=== PATIENT | female | born 1930 ===

== ENCOUNTER 2019-01-31 08:27 | Inpatient (IN) | payer MEDICARE, BC ==
[2019-01-31 09:09] LABS: BLOOD UREA NITROGEN,BUN 23 mg/dL (7.0-18.0); CARBON DIOXIDE,CO2 22.6 mmol/L (21.0-32.0); CHLORIDE,CL 103 mmol/L (98-107); GLUCOSE RANDOM 120 mg/dL (74-106); POTASSIUM,K 3.6 mmol/L (3.5-5.1); SODIUM,NA 137 mmol/L (136-145)
[2019-01-31 11:17] LABS: HEMOGLOBIN A1C 6.2 % (4.5-6.2)
[2019-01-31] MEDS ORDERED: Pantoprazole 80 MG in Sodium Chloride 0.9% 20 ML IV ONE (12:32)
[2019-01-31] MEDS ORDERED: Sodium Chloride 0.9% 2.5 ML Syringe FLUSH PRN (12:32)
[2019-01-31] MEDS ORDERED: Ondansetron 4 MG/2 ML SDV IVPUSH PRN (12:32)
--- NOTE | 2019-01-31 12:59 | PCM.HP.2 ---
H&P History of Present Illness - General Date of Service: 01/31/19 Admit Problem/Dx: Admission Diagnosis/Problem Admission Diagnosis/Problem GI bleed requiring more than 4 units of blood in 24 hours, ICU, or surgery Source of Information: Patient, Family - History of Present Illness Initial Comments - Free Text/Narative: 89 F with PMH of DM diet controlled, HTN who comes in for management of severely low Hb from her PCPs clinic. Patient was being evaluated in the clinic , lab work reveled severely low Hb of 4.2. Patient has been taking NSAIDs frequently due to her b/l Arm pain for last few weeks. Patient is unable to tel if she had black stools or bloody stools. Patient does complain of worsneing fatigue, shortness of breath on exertion. Last colonoscopy was 10 years back which was reportedly normal. 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 Per daughter patient has lost significant weight but that was intentionally to manage her diabetes. Patient is being admitted to the hospital for management of anemia likely secondary to GI bleed. Onset of Symptoms: Reports: Gradual Duration of Symptoms: Reports: Week(s): - Related Data Allergies/Adverse Reactions: Allergies Allergy/AdvReac Type Severity Reaction Status Date / Time No Known Allergies Allergy Verified 01/24/14 09:19 Past Medical History Cardiovascular History: Reports: High Cholesterol, Hypertension Endocrine/Metabolic History: Reports: Hypothyroidism Social & Family History - Family History Family Medical History: Noncontributory H&P Review of Systems - Review of Systems: Review Of Systems: See Below General: Reports: Malaise, Weakness, Fatigue. Denies: Fever, Chills, Night Sweats, Diaphoresis, Decreased Appetite Pulmonary: Reports: Shortness of Breath. Denies: Wheezing, Pleuritic Chest Pain , Cough Cardiovascular: Reports: Dyspnea on Exertion. Denies: Chest Pain, Palpitations , Orthopnea Gastrointestinal: Denies: Abdominal Pain, Anorexia, Black Stool, Bloody Stool, Constipation Genitourinary: Denies: Dysuria, Frequency, Burning, Pain Musculoskeletal: Denies: Neck Pain, Shoulder Pain, Arm Pain Psychiatric: Denies: Confusion, Depression, Mood Lability Neurological: Denies: Confusion, Dizziness, Headache, Numbness Hematologic/Lymphatic: Denies: Anemia, Easy Bleeding, Easy Bruising Exam - Exam Exam: See Below - Exam General: Alert, Oriented, Cooperative HEENT: Conjunctiva Clear, Other (pale mucosa). No: Mucosa Moist & [place] Neck: Supple, Trachea Midline Lungs: Clear to Auscultation, Normal Respiratory Effort Cardiovascular: Regular Rate, Regular Rhythm, Systolic Murmur GI/Abdominal Exam: Soft, Non-Tender Extremities: Normal Inspection, Arm Pain, Limited Range of Motion Peripheral Pulses: 3+: Dorsalis Pedis (L), Dorsalis Pedis (R) - Patient Data Lab Results Last 24 hrs: Laboratory Results - last 24 hr 01/31/19 01/31/19 01/31/19 Range/Units 08:40 08:40 08:40 WBC 9.59 (4.0-11.0) K/uL RBC 2.58 L (4.30-5.90) M/uL Hgb 4.2 L* (12.0-16.0) g/dL Hct 15.7 L (36.0-46.0) % MCV 60.9 L (80.0-98.0) fL MCH 16.3 L (27.0-32.0) pg MCHC 26.8 L (31.0-37.0) g/dL RDW Std Deviation 40.4 (28.0-62.0) fl RDW Coeff of Cassie 21 H (11.0-15.0) % Plt Count 542 H (150-400) K/uL MPV 10.00 (7.40-12.00) fL Sodium 137 (136-145) mmol/L Potassium 3.6 (3.5-5.1) mmol/L Chloride 103 (98-107) mmol/L Carbon Dioxide 22.6 (21.0-32.0) mmol/L BUN 23 H (7.0-18.0) mg/dL Creatinine 0.8 (0.6-1.0) mg/dL Est Cr Clr Drug Dosing TNP Estimated GFR (MDRD) > 60.0 ml/min Glucose 120 H (74-106) mg/dL Hemoglobin A1c 6.2 (4.5-6.2) % Calcium 9.5 (8.5-10.1) mg/dL Vitamin B12 (193-986) pg/mL Folate (8.60-58.90) ng/mL 01/31/19 Range/Units 08:40 WBC (4.0-11.0) K/uL RBC (4.30-5.90) M/uL Hgb (12.0-16.0) g/dL Hct (36.0-46.0) % MCV (80.0-98.0) fL MCH (27.0-32.0) pg MCHC (31.0-37.0) g/dL RDW Std Deviation (28.0-62.0) fl RDW Coeff of Cassie (11.0-15.0) % Plt Count (150-400) K/uL MPV (7.40-12.00) fL Sodium (136-145) mmol/L Potassium (3.5-5.1) mmol/L Chloride (98-107) mmol/L Carbon Dioxide (21.0-32.0) mmol/L BUN (7.0-18.0) mg/dL Creatinine (0.6-1.0) mg/dL Est Cr Clr Drug Dosing Estimated GFR (MDRD) ml/min Glucose (74-106) mg/dL Hemoglobin A1c (4.5-6.2) % Calcium (8.5-10.1) mg/dL Vitamin B12 407 (193-986) pg/mL Folate 17.60 (8.60-58.90) ng/mL Result Diagrams: 01/31/19 08:40 01/31/19 08:40 - Problem List (1) Diabetes mellitus SNOMED Code(s): 04201896 ICD Code: E11.9 - TYPE 2 DIABETES MELLITUS WITHOUT COMPLICATIONS Status: Acute Current Visit: Yes Qualifiers: Diabetes mellitus custodial insulin use: without custodial use Diabetes mellitus complication status: without complication (2) HTN (hypertension) SNOMED Code(s): 40771072 ICD Code: I10 - ESSENTIAL (PRIMARY) HYPERTENSION Status: Acute Current Visit: Yes (3) Anemia SNOMED Code(s): 695295413 ICD Code: D64.9 - ANEMIA, UNSPECIFIED Status: Acute Current Visit: Yes (4) Arm pain, chronic SNOMED Code(s): 299030061 ICD Code: M79.603 - PAIN IN ARM, UNSPECIFIED; G89.29 - OTHER CHRONIC PAIN Status: Acute Current Visit: Yes Problem List Initiated/Reviewed/Updated: Yes Orders Last 24hrs: Active Orders 24 hr Category Date Time Status Patient Status [ADT] Routine ADT 01/31/19 12:32 Active Antiembolic Devices [RC] PER UNIT ROUTINE Care 01/31/19 12:33 Active Hemoccult [Fecal Occult Blood Collection] [RC] Care 01/31/19 12:29 Active ASDIRECTED Intake and Output [RC] QSHIFT Care 01/31/19 12:33 Active Oxygen Therapy [RC] PRN Care 01/31/19 12:32 Active Up With Assistance [RC] ASDIRECTED Care 01/31/19 12:32 Active VTE/DVT Education [RC] PER UNIT ROUTINE Care 01/31/19 12:32 Active Verify Patient Consent Obtain [RC] ASDIRECTED Care 01/31/19 12:28 Active Vital Signs [RC] Q4H Care 01/31/19 12:32 Active Nothing per Oral Now Diet [DIET] Diet 01/31/19 Breakfast Active ALANINE AMINOTRANSFERASE,ALT [CHEM] Routine Lab 01/31/19 12:29 Ordered ALKALINE PHOSPHATASE [CHEM] Routine Lab 01/31/19 12:29 Ordered ASPARTATE AMNIOTRANSFERASE,AST [CHEM] Routine Lab 01/31/19 12:29 Ordered BILIRUBIN TOTAL [CHEM] Routine Lab 01/31/19 12:29 Ordered FERRITIN [CHEM] Routine Lab 01/31/19 12:30 Ordered Hemoccult [OCCULT BLOOD DIAGNOSTIC] [OP] Routine Lab 01/31/19 12:29 Ordered INR,PT,PROTHROMBIN TIME [COAG] Routine Lab 01/31/19 12:29 Ordered IRON/TIBC [CHEM] Routine Lab 01/31/19 12:30 Ordered PERIPH BLOOD SMEAR PATHOLOGIST [HEME] Routine Lab 01/31/19 12:30 Ordered PTT,PARTIAL THROMBOPLSTIN TIME [COAG] Routine Lab 01/31/19 12:29 Ordered RED BLOOD CELLS LP [BBK] Stat Lab 01/31/19 12:28 Ordered RETICULOCYTE COUNT [HEME] Routine Lab 01/31/19 12:30 Ordered TRANSFERRIN [CHEM] Routine Lab 01/31/19 12:30 Ordered TYPE AND SCREEN [BBK] Stat Lab 01/31/19 12:28 Ordered Ondansetron [Zofran] Med 01/31/19 12:32 Active 4 mg IVPUSH Q4H PRN Pantoprazole [ProTONIX IV] 40 mg Med 01/31/19 21:00 Active Sodium Chloride 0.9% [Normal Saline] 10 ml IV Q12HR Sodium Chloride 0.9% [Saline Flush] Med 01/31/19 12:32 Active 2.5 ml FLUSH ASDIRECTED PRN Saline Lock Insert [OM.PC] Routine Oth 01/31/19 12:32 Ordered Sequential Compression Device [OM.PC] Per Unit Routine Oth 01/31/19 12:33 Ordered Transfuse Red Blood Cells [COMM] Stat Oth 01/31/19 12:28 Ordered Resuscitation Status Routine Resus Stat 01/31/19 12:32 Ordered Medication Orders Pantoprazole Sodium 40 mg/ (Sodium Chloride) 10 mls @ 300 mls/hr IV Q12HR JOAN Ondansetron HCl (Zofran) 4 mg IVPUSH Q4H PRN PRN Reason: Nausea Sodium Chloride (Saline Flush) 2.5 ml FLUSH ASDIRECTED PRN PRN Reason: Keep Vein Open Assessment/Plan Comment:: 89 y/o F with PMH of HTN, DM comes in for management of severe anemia likely secondary to GI bleed. Hemodynamically stable for now, no active bleeding noted so far Will transfuse 4 units of PRBC, may need more units Will start on IV PPI 40mg BID Start clears for now for diet, surgery aware about the patient, possible colonoscopy on wednesday. Will obtain iron studies Will continue to trend Hb continue to monitor vitals closely
[2019-01-31] MEDS ORDERED: Pantoprazole 40 MG Vial ONE ×2 (14:10→14:14)
--- NOTE | 2019-01-31 17:29 | PCM.SN ---
- Free Text/Narrative Note: pt seen, chart reviewed; anemia, would benefit from egd; r/b dw pt re bleeding/ perforation/; pt voiced understanding; if no finding, may need to proceed with colonoscopy, likely outpatient then; tks for the consult and care of this nice patient; [id number]
[2019-01-31] MEDS ORDERED: Furosemide 40 MG/4 ML VIAL IVPUSH PRN (19:19)
[2019-01-31] MEDS: Pantoprazole 40 MG in Sodium Chloride 0.9% 10 ML IV SCH (20:52)
[2019-01-31] MEDS ORDERED: Pantoprazole 40 MG Vial IV SCH (21:00)
[2019-01-31] MEDS: Acetaminophen 325 MG Tab PO PRN (23:11)
[2019-02-01] MEDS ORDERED: Lactated Ringers 1,000 ML IV SCH (05:00)
[2019-02-01] MEDS: Levothyroxine 75 MCG Tab PO SCH (07:27)
[2019-02-01 07:49] LABS: BLOOD UREA NITROGEN,BUN 14 mg/dL (7.0-18.0); CARBON DIOXIDE,CO2 22.7 mmol/L (21.0-32.0); CHLORIDE,CL 105 mmol/L (98-107); GLUCOSE RANDOM 87 mg/dL (74-106); POTASSIUM,K 3.5 mmol/L (3.5-5.1); SODIUM,NA 138 mmol/L (136-145)
[2019-02-01] MEDS: Cyclosporine 1 DROP EYEBOTH SCH ×3 (07:53→21:19)
[2019-02-01] MEDS: Pantoprazole 40 MG in Sodium Chloride 0.9% 10 ML IV SCH ×2 (08:27→21:19)
--- NOTE | 2019-02-01 09:10 | PCM.PREANE ---
Preanesthetic Assessment - Anesthesia/Transfusion/Family Hx Anesthesia History: Prior Anesthesia Without Reaction Family History of Anesthesia Reaction: No - Review of Systems General: No Symptoms Pulmonary: No Symptoms Cardiovascular: No Symptoms Gastrointestinal: No Symptoms Neurological: No Symptoms Other: Reports: None - Physical Assessment Vital Signs: Last Vital Signs Temp 98.4 F 02/01/19 08:21 Pulse 59 L 02/01/19 08:21 Resp 16 02/01/19 08:21 BP 155/54 H 02/01/19 08:21 Pulse Ox 93 L 02/01/19 08:21 Height: 5 ft Weight: 57 kg ASA Class: 2 Mental Status: Alert & Oriented x3 Airway Class: Mallampati = 2 Dentition: Reports: Normal Dentition ROM/Head Extension: Full Lungs: Clear to Auscultation, Normal Respiratory Effort Cardiovascular: Regular Rate, Regular Rhythm, Other (No murmur or ectopy) - Lab Values: Laboratory Last Values WBC 8.48 K/uL (4.0-11.0) 02/01/19 07:20 RBC 4.44 M/uL (4.30-5.90) 02/01/19 07:20 Hgb 10.2 g/dL (12.0-16.0) L 02/01/19 07:20 Hct 31.1 % (36.0-46.0) L 02/01/19 07:20 MCV 70.0 fL (80.0-98.0) L 02/01/19 07:20 MCH 23.0 pg (27.0-32.0) L 02/01/19 07:20 MCHC 32.8 g/dL (31.0-37.0) 02/01/19 07:20 RDW Std Deviation 59.9 fl (28.0-62.0) 02/01/19 07:20 RDW Coeff of Cassie 24 % (11.0-15.0) H 02/01/19 07:20 Plt Count 301 K/uL (150-400) 02/01/19 07:20 MPV 9.10 fL (7.40-12.00) 02/01/19 07:20 Neut % (Auto) 60.5 % (48.0-80.0) 02/01/19 07:20 Lymph % (Auto) 17.9 % (16.0-40.0) 02/01/19 07:20 [place] % (Auto) 15.6 % (0.0-15.0) H 02/01/19 07:20 Eos % (Auto) 5.5 % (0.0-7.0) 02/01/19 07:20 Baso % (Auto) 0.5 % (0.0-1.5) 02/01/19 07:20 Neut # (Auto) 5.1 K/uL (1.4-5.7) 02/01/19 07:20 Lymph # (Auto) 1.5 K/uL (0.6-2.4) 02/01/19 07:20 [place] # (Auto) 1.3 K/uL (0.0-0.8) H 02/01/19 07:20 Eos # (Auto) 0.5 K/uL (0.0-0.7) 02/01/19 07:20 Baso # (Auto) 0.0 K/uL (0.0-0.1) 02/01/19 07:20 Nucleated RBC % 0.0 /100WBC 02/01/19 07:20 Nucleated RBCs # 0 K/uL 02/01/19 07:20 Smear Path Review SENT TO PATHOLOGY 01/31/19 12:47 Absolute Retic 48.00 K/uL (20-80) 01/31/19 12:47 Percent Retic 1.8 % (0.5-1.5) H 01/31/19 12:47 Immature Retic Fraction 23 % 01/31/19 12:47 INR 0.99 01/31/19 12:47 APTT 21.2 SEC (18.6-31.3) 01/31/19 12:47 Sodium 138 mmol/L (136-145) 02/01/19 07:20 Potassium 3.5 mmol/L (3.5-5.1) 02/01/19 07:20 Chloride 105 mmol/L (98-107) 02/01/19 07:20 Carbon Dioxide 22.7 mmol/L (21.0-32.0) 02/01/19 07:20 BUN 14 mg/dL (7.0-18.0) 02/01/19 07:20 Creatinine 0.7 mg/dL (0.6-1.0) 02/01/19 07:20 Est Cr Clr Drug Dosing 39.90 mL/min 02/01/19 07:20 Estimated GFR (MDRD) > 60.0 ml/min 02/01/19 07:20 Glucose 87 mg/dL (74-106) 02/01/19 07:20 Hemoglobin A1c 6.2 % (4.5-6.2) 01/31/19 08:40 Calcium 9.4 mg/dL (8.5-10.1) 02/01/19 07:20 Iron 8 ug/dL (50-175) L 01/31/19 12:47 TIBC 408 ug/dL (250-450) 01/31/19 12:47 % Saturation 1.96 % (20-55) L 01/31/19 12:47 Transferrin 286 ug/dL (200-400) 01/31/19 12:47 Ferritin 5 ng/mL (8-252) L 01/31/19 12:47 Total Bilirubin 0.3 mg/dL (0.2-1.0) 01/31/19 12:47 AST 16 IU/L (15-37) 01/31/19 12:47 ALT 16 IU/L (14-63) 01/31/19 12:47 Alkaline Phosphatase 91 U/L (46-116) 01/31/19 12:47 Vitamin B12 407 pg/mL (193-986) 01/31/19 08:40 Folate 17.60 ng/mL (8.60-58.90) 01/31/19 08:40 Blood Type O POSITIVE 01/31/19 12:47 Antibody Screen NEGATIVE 01/31/19 12:47 Crossmatch See Detail 01/31/19 12:47 - Allergies Allergies/Adverse Reactions: Allergies Allergy/AdvReac Type Severity Reaction Status Date / Time No Known Allergies Allergy Verified 01/24/14 09:19 - Blood Blood Available: No - Anesthesia Plan Pre-Op Medication Ordered: None - Acknowledgements Anesthesia Type Planned: General Anesthesia Pt an Appropriate Candidate for the Planned Anesthesia: Yes Alternatives and Risks of Anesthesia Discussed w Pt/Guardian: Yes Pt/Guardian Understands and Agrees with Anesthesia Plan: Yes Additional Comments: PMH: acute anemia with HB 4, now 10 post transfusion, diet ccontrolled DM, HTN, on NSAIDS, HLD, thyroid replacement, Plan: tiva PreAnesthesia Questionnaire HEENT History: Reports: Hard of Hearing, Other (See Below) Other HEENT History: USES READING GLASSES; 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 Now only diet controlled. - SUBSTANCE USE Smoking Status *Q: Never Smoker Second Hand Smoke Exposure: No Recreational Drug Use History: No - HOME MEDS Home Medications: Home Meds Levothyroxine 75 mcg PO ACBREAKFAST 01/31/19 [History] Losartan [Cozaar] 100 mg PO DAILY 01/31/19 [History] Simvastatin 20 mg PO BEDTIME 01/31/19 [History] cycloSPORINE [Restasis] 1 drop EYEBOTH BID 01/31/19 [History] hydroCHLOROthiazide [Hydrochlorothiazide] 25 mg PO DAILY 01/31/19 [History] metFORMIN HCl [Metformin HCl ER] 500 mg PO WITHDINNER 01/31/19 [History] - CURRENT (IN HOUSE) MEDS Current Meds: Current Medications Acetaminophen (Tylenol) 650 mg PO Q6H PRN PRN Reason: Pain Last Admin: 01/31/19 23:11 Dose: 650 mg Furosemide (Lasix) 20 mg IVPUSH ONETIME PRN PRN Reason: Other Pantoprazole Sodium 40 mg/ (Sodium Chloride) 10 mls @ 300 mls/hr IV Q12HR [facility] Last Admin: 02/01/19 08:27 Dose: 300 mls/hr Lactated Ringer's (Ringers, Lactated) 1,000 mls @ 50 mls/hr IV ASDIRECTED JOAN Last Admin: 02/01/19 06:23 Dose: 50 mls/hr Levothyroxine Sodium (Levothyroxine) 75 mcg PO ACBREAKFAST [facility] Last Admin: 02/01/19 07:27 Dose: Not Given Ondansetron HCl (Zofran) 4 mg IVPUSH Q4H PRN PRN Reason: Nausea Cyclosporine 1 Drop 1 each EYEBOTH BID [facility] Last Admin: 02/01/19 08:52 Dose: Not Given Simvastatin (Zocor) 20 mg PO BEDTIME JOAN Sodium Chloride (Saline Flush) 2.5 ml FLUSH ASDIRECTED PRN PRN Reason: Keep Vein Open Discontinued Medications Pantoprazole Sodium 80 mg/ (Sodium Chloride) 20 mls @ 600 mls/hr IV ONETIME ONE Stop: 01/31/19 12:33 Last Admin: 01/31/19 14:16 Dose: 600 mls/hr Pantoprazole Sodium (Protonix Iv) 40 mg IV Q12HR JOAN Pantoprazole Sodium (Protonix Iv) Confirm Administered Dose 40 mg .ROUTE .STK -MED ONE Stop: 01/31/19 14:11 Last Admin: 01/31/19 14:35 Dose: Not Given Pantoprazole Sodium (Protonix Iv) Confirm Administered Dose 40 mg .ROUTE .STK -MED ONE Stop: 01/31/19 14:15 Last Admin: 01/31/19 14:35 Dose: Not Given
--- NOTE | 2019-02-01 09:25 | CONS ---
DATE OF CONSULTATION: 01/31/2019 DATE OF : 1930 PRIMARY CARE PHYSICIAN: Patricio Shepherd M.D. REFERRING PHYSICIAN: Surinder Marte MD CONCERNING QUESTION: GI bleeding. HISTORY OF PRESENT ILLNESS: The patient is an 89-year-old white female, had worked in the past as a registered nurse in the operating room, appears much younger than stated age, with a past medical history of diabetic, diet controlled, and hypertension, and seen at primary care provider's office for lack of energy and tired and short of breath. She was noted to be severely anemic with hemoglobin of 4.2. The patient was admitted to ICU and received a blood transfusion. Surgery was then consulted for possible endoscopy study. The patient remarked that she denies any black tarry stool or bright red blood per rectum, and the lack of energy has been going on for about 10 days to 2 weeks. The patient denies weight loss, denies poor appetite, denies change in bowel habits, and denies bright red blood per rectum or black tarry stool. ALLERGIES: Please refer to nursing for details. MEDICATIONS: Please refer to nursing for details. PAST MEDICAL HISTORY: Significant for diabetes, no OH or CVA. The patient has hypertension. PAST OBSTETRIC HISTORY: Had a normal vaginal delivery x4 and colonoscopy more than 10 years ago. PHYSICAL EXAMINATION: GENERAL: A very pleasant lady, appears much younger than stated age, in no acute distress. HEENT: Normocephalic and atraumatic. Sclerae anicteric. LUNGS: Clear to auscultation. HEART: Regular rate and rhythm. ABDOMEN: Soft, nondistended. No pulsating tender midline abdominal structure. No hernia. Nontender in the epigastrium. LABORATORY VALUES UPON CONSULTATION: H and H is 4.2, hematocrit of 15.7; platelets are 542,000. INR is 0.99. BUN is 23, creatinine is 0.8. IMPRESSION: Anemic and compensated, either chronic or active. We will initiate gastrointestinal bleeding protocol, two large-bore IV access, and transfuse to H and H above 10, strict in and out, and avoid anticoagulation. Tentatively plan for EGD tomorrow, and if no findings, probably will be a good idea look at the colon, but for the time being, the patient is anxious and we will schedule with EGD. Risks and benefits discussed with the patient including bleeding, perforation, and , and the patient voiced understanding and concurred for the procedure. As always, thank you for the kind referral. JEANNE SANCHEZ /[id number]
[2019-02-01] MEDS ORDERED: Propofol 200 MG/20 ML SDV ONE (09:54)
--- NOTE | 2019-02-01 10:37 | PCM.POSTAN ---
POST ANESTHESIA ASSESSMENT - MENTAL STATUS Mental Status: Alert - VITAL SIGNS Vital Signs: Last Vital Signs Temp 36.9 C 02/01/19 08:21 Pulse 59 L 02/01/19 08:21 Resp 16 02/01/19 08:21 BP 155/54 H 02/01/19 08:21 Pulse Ox 93 L 02/01/19 10:20 - RESPIRATORY Respiratory Status: Respiratory Rate WNL - CARDIOVASCULAR CV Status: Pulse Rate WNL - GASTROINTESTINAL GI Status: No Symptoms - PAIN Pain Score: 0 - POST OP HYDRATION Hydration Status: Adequate & Stable - OBSERVATIONS Free Text/Narrative:: A&O x3. Doing well. No problems noted.
[2019-02-01] MEDS ORDERED: Iron Sucrose Complex 500 MG in Sodium Chloride 0.9% 250 ML IV ONE (11:08)
--- NOTE | 2019-02-01 11:08 | PCM.OPNOTE ---
- General Post-Op/Procedure Note Date of Surgery/Procedure: 02/01/19 Operative Procedure(s): egd w bx Findings: no blood/blood clot/ulcer/signs or symptoms of bleeding, mild gastritis; proceed colonoscopy tomorrow, [id number] Pre Op Diagnosis: anemia Post-Op Diagnosis: Same Anesthesia Technique: Moderate Sedation Primary Surgeon: Maverick Felix Pathology: egd bx Complications: None Condition: Good Free Text/Narrative:: Intake & Output 01/31/19 02/01/19 02/01/19 22:59 06:59 14:59 Intake Total 1290 930 Output Total 200 750 Balance 1090 180
--- NOTE | 2019-02-01 11:18 | PCM.SN ---
- Free Text/Narrative Note: egd done without incident; no blood/blood clot/signs or symptoms or recent bleeding; proceed w colonoscopy tomorrow
--- NOTE | 2019-02-01 13:43 | PCM.PN ---
- General Info Date of Service: 02/01/19 Subjective Update: Reports feeling much better this morning. SOB and weakness has improved significantly. - Patient Data Vitals - Most Recent: Last Vital Signs Temp 98.2 F 02/01/19 10:47 Pulse 52 L 02/01/19 12:59 Resp 14 02/01/19 12:59 BP 149/53 H 02/01/19 12:59 Pulse Ox 52 L 02/01/19 12:59 Weight - Most Recent: 125 lb 10.616 oz I&O - Last 24 Hours: Intake & Output 01/31/19 02/01/19 02/01/19 22:59 06:59 14:59 Intake Total 1290 930 Output Total 200 750 Balance 1090 180 Lab Results Last 24 Hours: Laboratory Results - last 24 hr 01/31/19 01/31/19 01/31/19 Range/Units 12:47 12:47 12:47 WBC (4.0-11.0) K/uL RBC 2.64 L (4.30-5.90) M/uL Hgb (12.0-16.0) g/dL Hct (36.0-46.0) % MCV (80.0-98.0) fL MCH (27.0-32.0) pg MCHC (31.0-37.0) g/dL RDW Std Deviation (28.0-62.0) fl RDW Coeff of Cassie (11.0-15.0) % Plt Count (150-400) K/uL MPV (7.40-12.00) fL Neut % (Auto) (48.0-80.0) % Lymph % (Auto) (16.0-40.0) % Coke % (Auto) (0.0-15.0) % Eos % (Auto) (0.0-7.0) % Baso % (Auto) (0.0-1.5) % Neut # (Auto) (1.4-5.7) K/uL Lymph # (Auto) (0.6-2.4) K/uL [place]ke # (Auto) (0.0-0.8) K/uL Eos # (Auto) (0.0-0.7) K/uL Baso # (Auto) (0.0-0.1) K/uL Nucleated RBC % /100WBC Nucleated RBCs # K/uL Absolute Retic 48.00 (20-80) K/uL Percent Retic 1.8 H (0.5-1.5) % Immature Retic Fraction 23 % Sodium (136-145) mmol/L Potassium (3.5-5.1) mmol/L Chloride (98-107) mmol/L Carbon Dioxide (21.0-32.0) mmol/L BUN (7.0-18.0) mg/dL Creatinine (0.6-1.0) mg/dL Est Cr Clr Drug Dosing mL/min Estimated GFR (MDRD) ml/min Glucose (74-106) mg/dL Calcium (8.5-10.1) mg/dL Iron 8 L (50-175) ug/dL TIBC 408 (250-450) ug/dL % Saturation 1.96 L (20-55) % Transferrin 286 (200-400) ug/dL Ferritin 5 L (8-252) ng/mL Blood Type O POSITIVE Antibody Screen NEGATIVE Crossmatch See Detail 02/01/19 02/01/19 02/01/19 Range/Units 00:29 07:20 07:20 WBC 8.48 (4.0-11.0) K/uL RBC 4.44 (4.30-5.90) M/uL Hgb 8.3 L 10.2 L (12.0-16.0) g/dL Hct 31.1 L (36.0-46.0) % MCV 70.0 L (80.0-98.0) fL MCH 23.0 L (27.0-32.0) pg MCHC 32.8 (31.0-37.0) g/dL RDW Std Deviation 59.9 (28.0-62.0) fl RDW Coeff of Cassie 24 H (11.0-15.0) % Plt Count 301 (150-400) K/uL MPV 9.10 (7.40-12.00) fL Neut % (Auto) 60.5 (48.0-80.0) % Lymph % (Auto) 17.9 (16.0-40.0) % [place] % (Auto) 15.6 H (0.0-15.0) % Eos % (Auto) 5.5 (0.0-7.0) % Baso % (Auto) 0.5 (0.0-1.5) % Neut # (Auto) 5.1 (1.4-5.7) K/uL Lymph # (Auto) 1.5 (0.6-2.4) K/uL [place]ke # (Auto) 1.3 H (0.0-0.8) K/uL Eos # (Auto) 0.5 (0.0-0.7) K/uL Baso # (Auto) 0.0 (0.0-0.1) K/uL Nucleated RBC % 0.0 /100WBC Nucleated RBCs # 0 K/uL Absolute Retic (20-80) K/uL Percent Retic (0.5-1.5) % Immature Retic Fraction % Sodium 138 (136-145) mmol/L Potassium 3.5 (3.5-5.1) mmol/L Chloride 105 (98-107) mmol/L Carbon Dioxide 22.7 (21.0-32.0) mmol/L BUN 14 (7.0-18.0) mg/dL Creatinine 0.7 (0.6-1.0) mg/dL Est Cr Clr Drug Dosing 39.90 mL/min Estimated GFR (MDRD) > 60.0 ml/min Glucose 87 (74-106) mg/dL Calcium 9.4 (8.5-10.1) mg/dL Iron (50-175) ug/dL TIBC (250-450) ug/dL % Saturation (20-55) % Transferrin (200-400) ug/dL Ferritin (8-252) ng/mL Blood Type Antibody Screen Crossmatch [place] Results Last 24 Hours: Microbiology 01/31/19 07:40 Stool Occult Blood ([place]) - Final Stool / Feces NEGATIVE OCCULT BLOOD REFERENCE RANGE: NEGATIVE Med Orders - Current: Current Medications Acetaminophen (Tylenol) 650 mg PO Q6H PRN PRN Reason: Pain Last Admin: 01/31/19 23:11 Dose: 650 mg Bisacodyl (Dulcolax) 20 mg PO ONETIME ONE Stop: 02/01/19 14:01 Furosemide (Lasix) 20 mg IVPUSH ONETIME PRN PRN Reason: Other Pantoprazole Sodium 40 mg/ (Sodium Chloride) 10 mls @ 300 mls/hr IV Q12HR [facility] Last Admin: 02/01/19 08:27 Dose: 300 mls/hr Iron Sucrose 500 mg/ Sodium (Chloride) 275 mls @ 62.5 mls/hr IV ONETIME ONE Stop: 02/01/19 15:31 Last Admin: 02/01/19 12:08 Dose: 62.5 mls/hr Lactated Ringer's (Ringers, Lactated) 1,000 mls @ 50 mls/hr IV ASDIRECTED [facility] Levothyroxine Sodium (Levothyroxine) 75 mcg PO ACBREAKFAST [facility] Last Admin: 02/01/19 07:27 Dose: Not Given Ondansetron HCl (Zofran) 4 mg IVPUSH Q4H PRN PRN Reason: Nausea Cyclosporine 1 Drop 1 each EYEBOTH BID [facility] Last Admin: 02/01/19 08:52 Dose: Not Given Polyethylene Glycol (Miralax) 119 gm PO Q4H [facility] Stop: 02/01/19 20:01 Simvastatin (Zocor) 20 mg PO BEDTIME [facility] Sodium Chloride (Saline Flush) 2.5 ml FLUSH ASDIRECTED PRN PRN Reason: Keep Vein Open Discontinued Medications Pantoprazole Sodium 80 mg/ (Sodium Chloride) 20 mls @ 600 mls/hr IV ONETIME ONE Stop: 01/31/19 12:33 Last Admin: 01/31/19 14:16 Dose: 600 mls/hr Lactated Ringer's (Ringers, Lactated) 1,000 mls @ 50 mls/hr IV ASDIRECTED [facility] Last Admin: 02/01/19 06:23 Dose: 50 mls/hr Lactated Ringer's (Ringers, Lactated) 1,000 mls @ 50 mls/hr IV ASDIRECTED [facility] Lidocaine HCl (Xylocaine-Mpf 1%) Confirm Administered Dose 5 ml .ROUTE .STK-MED ONE Stop: 02/01/19 09:56 Pantoprazole Sodium (Protonix Iv) 40 mg IV Q12HR [facility] Pantoprazole Sodium (Protonix Iv) Confirm Administered Dose 40 mg .ROUTE .STK -MED ONE Stop: 01/31/19 14:11 Last Admin: 01/31/19 14:35 Dose: Not Given Pantoprazole Sodium (Protonix Iv) Confirm Administered Dose 40 mg .ROUTE .STK -MED ONE Stop: 01/31/19 14:15 Last Admin: 01/31/19 14:35 Dose: Not Given Propofol (Diprivan 20 Ml) Confirm Administered Dose 200 mg .ROUTE .STK-MED ONE Stop: 02/01/19 09:55 - Exam General: Alert, Oriented, Cooperative, No Acute Distress Lungs: Clear to Auscultation, Normal Respiratory Effort Cardiovascular: Regular Rate, Regular Rhythm GI/Abdominal Exam: Normal Bowel Sounds, Soft, Non-Tender, No Distention Extremities: Normal Inspection, No Pedal Edema Skin: Warm, Dry, Intact - Problem List Review Problem List Initiated/Reviewed/Updated: Yes - My Orders Last 24 Hours: My Active Orders 01/31/19 19:19 Furosemide [Lasix] 20 mg IVPUSH ONETIME PRN 01/31/19 21:00 Patient's Own Medication [Ptom] 1 each EYEBOTH BID 02/01/19 07:30 Levothyroxine 75 mcg PO ACBREAKFAST 02/01/19 21:00 Simvastatin [Zocor] 20 mg PO BEDTIME - Plan Plan:: Assessment and Plan: 1. Severe microcytic anemia likely secondary to GI bleed s/p transfusion 4 units PRBC's. 2. Iron deficiency. 3. Past medical history of diabetes mellitus type 2, HTN and hypothyroidism. Plan: 1. Post-transfusion hemoglobin was 10.[address] General surgeon Dr. Felix consulted and took patient for EGD today and did not find a source of bleeding. Patient is scheduled for colonoscopy tomorrow. Patient remains hemodynamically stable. Continue IV PPI 40 mg BID. Will recheck hemoglobin this afternoon. 2. For iron deficiency, will give IV iron infusion today.
[2019-02-01] MEDS ORDERED: Bisacodyl 5 MG Tab PO ONE (14:00)
--- NOTE | 2019-02-01 15:19 | OR ---
SURGEON: Maverick Felix MD DATE OF PROCEDURE: 02/01/2019 PREOPERATIVE DIAGNOSIS: Anemia. POSTOPERATIVE DIAGNOSIS: Gastritis. PROCEDURE PERFORMED: Esophagogastroduodenoscopy with biopsy. DESCRIPTION OF PROCEDURE: EGD: The patient was taken to the endoscopy room, and with the ZIPPER MACHINE OPERATOR, Diprivan was administered. A well-lubricated EGD scope was gently inserted through the oropharynx, down the esophagus, passing through the gastroesophageal junction, into the stomach. The mucosa was examined upon the passage. Any etiology will be noted. Once in the stomach, we continued to advance to the distal antrum, passed through the pylorus into the second portion of the duodenum. Again, the mucosa was examined for any abnormality and etiology. The scope was then retrieved back to the stomach and then retroflexed to look at the fundus of the stomach. If a biopsy was indicated, we will biopsy the antrum, body, and gastroesophageal junction. The air will be sucked out while the scope is retrieved to reduce the patient's discomfort. The patient tolerated the procedure well. There were no intraoperative complications. Dr. Felix was present through the whole procedure. Prior to surgery, a time-out had been called, the patient identified, procedure identified and antibiotic administered. FINDINGS: 1. The patient is easily sedated with ZIPPER MACHINE OPERATOR and Diprivan, the patient is soundly snoring. 2. Oropharynx and proximal esophagus are free of disease. Distal esophagus shows very minimal salmon-colored change, suggests mild to no acid reflux. Stomach rugae are normal in appearance. Antrum is a little bit inflamed, but there is no blood, blood clot, ulcer, or signs or symptoms of bleeding observed and there is no food particle, a little bit of bile. Duodenum is grossly normal. Retroflexed look at the fundus of stomach, there is no hiatal hernia. Biopsy done at antrum and body and sucked out the gas while scope pulling out. ASSESSMENT AND PLANNING: She does not seem to have any signs or symptoms of bleeding from this EGD. We will proceed with colonoscopy tomorrow after discussing with the medical team, so tentatively schedule for tomorrow, . As always, thank you for the kind referral. JEANNE SANCHEZ /[id number]
[2019-02-01] MEDS: Polyethylene Glycol 3350 Powder 17 GM Packet PO SCH ×2 (16:18→19:45)
[2019-02-01] MEDS ORDERED: Simvastatin 20 MG Tab PO SCH (21:00)
[2019-02-01] MEDS: Acetaminophen 325 MG Tab PO PRN (21:16)
[2019-02-02] MEDS ORDERED: Lactated Ringers 1,000 ML IV SCH ×2 (00:01→05:00)
[2019-02-02 06:27] LABS: BLOOD UREA NITROGEN,BUN 12 mg/dL (7.0-18.0); CARBON DIOXIDE,CO2 24.2 mmol/L (21.0-32.0); CHLORIDE,CL 106 mmol/L (98-107); GLUCOSE RANDOM 79 mg/dL (74-106); POTASSIUM,K 3.1 mmol/L (3.5-5.1); SODIUM,NA 140 mmol/L (136-145)
[2019-02-02] MEDS ORDERED: Potassium Chloride Riders 40 MEQ in Premix Bag 1 BAG IV ONE (07:49)
[2019-02-02] MEDS: Levothyroxine 75 MCG Tab PO SCH (07:50)
[2019-02-02] MEDS: Pantoprazole 40 MG in Sodium Chloride 0.9% 10 ML IV SCH (09:35)
[2019-02-02] MEDS: Cyclosporine 1 DROP EYEBOTH SCH ×2 (09:41→13:57)
[2019-02-02] MEDS: Hydrochlorothiazide 25 MG Tab PO SCH ×2 (09:41→13:55)
[2019-02-02] MEDS: Losartan 50 MG Tab PO SCH ×2 (09:41→13:56)
--- NOTE | 2019-02-02 10:10 | PCM.SN ---
- Free Text/Narrative Note: plan colonoscopy today, a bit hypotensive with bowel prep, and hypokelemia; will need optimization for procedure
--- NOTE | 2019-02-02 10:27 | PCM48HPAN ---
Post Anesthesia Note - EVALUATION WITHIN 48HRS OF ANESTHETIC Vital Signs in Normal Range: Yes Patient Participated in Evaluation: Yes Respiratory Function Stable: Yes Airway Patent: Yes Cardiovascular Function Stable: Yes Hydration Status Stable: Yes Pain Control Satisfactory: Yes Nausea and Vomiting Control Satisfactory: Yes Mental Status Recovered: Yes Vital Signs: Last Vital Signs Temp 36.8 C 02/02/19 07:48 Pulse 52 L 02/02/19 10:23 Resp 20 02/02/19 10:23 BP 174/74 H 02/02/19 10:23 Pulse Ox 93 L 02/02/19 10:23
--- NOTE | 2019-02-02 10:29 | PCM.PRNOTE ---
- Free Text/Narrative Note: Anecarey Note Abdiel has been NPO since midnight for colonoscopy this AM. Her bp is 170/70 range, because her AM BP meds have been witheld. I will administer BP meds in the OR as needed. Plan MAC anesthesia for colonoscopy. José Miguel Espinoza ASSOCIATE DIRECTOR
[2019-02-02] MEDS ORDERED: Propofol 200 MG/20 ML SDV ONE (10:44)
[2019-02-02] MEDS ORDERED: Glycopyrrolate 0.2 MG/ML SDV ONE (11:19)
--- NOTE | 2019-02-02 12:48 | CR ---
EXAM DATE: 01/31/19 PATIENT'S AGE: 89 Abdomen: Upright view of the abdomen was obtained. Comparison: No prior abdominal x-ray. Gas within colon is noted. No free air is seen. Degenerative change is scattered within the spine. Impression: 1. Gas within the colon with no free air. Diagnostic code #2 This report was dictated in [place] Standard Time Report Signed by Proxy. [facility] CENTERWallace
--- NOTE | 2019-02-02 13:34 | PCM.OPNOTE ---
- General Post-Op/Procedure Note Date of Surgery/Procedure: 02/02/19 Operative Procedure(s): attempted colonoscopy Findings: see dict [id number]; attempted colonoscopy to 40cm, then aborted Pre Op Diagnosis: anemia Post-Op Diagnosis: Same Anesthesia Technique: Moderate Sedation Primary Surgeon: Maverick Felix Complications: None Condition: Good Free Text/Narrative:: Intake & Output 02/01/19 02/02/19 02/02/19 22:59 06:59 14:59 Intake Total 1650 1937 450 Output Total 300 1200 Balance 1350 737 450
--- NOTE | 2019-02-02 13:36 | PCM.SN ---
- Free Text/Narrative Note: unsuccessful colonoscopy, no diseases observed during the short exam, no blood/ cleeding/polyp; if discharge home, fu 1 - 2 wks; barium enema usually complement unsuccessful colonoscopy; checked w radiology department, we do not have radiologist to perform barium enema.
--- NOTE | 2019-02-02 15:24 | PCM.DCSUM1 ---
<Darnell Moreno - Last Filed: 02/02/19 16:08> Discharge Summary - Hospital Course Free Text/Narrative:: 89-year-old female admitted for severe normocytic anemia with hemoglobin level of 4.2 She has a PMH of DM type 2, HTN and hypothyroidism. Patient had no history of maranda bleeding, no recollection of dark stools but did complain of weakness and shortness of breath on admission. Stool occult test was negative. She also reported taking ibuprofen 800 mg per day for the past 3 months for bilateral arm pain. Patient was transfused with 4 units of PRBC's and post- transfusion hemoglobin was 10.2. Patient started on PPI 40 mg BID. General surgery consulted who did EGD which did not find a source of bleeding. Patient was also taken for a colonoscopy which was unsuccessful as scope could not be advance adequately, however, no source of bleeding was identified on limited scope. Patient's hemoglobin remained stable after transfusion. General surgeon Dr. Felix, recommended outpatient follow-up with him in 2 weeks time. Patient also advised to follow-up with her PCP. - Discharge Data Discharge Date: 02/02/19 Discharge Disposition: Home, Self-Care 01 Condition: Stable - Referral to Home Health Primary Care Physician: Patricio Shepherd MD - Patient Summary/Data Operative Procedure(s) Performed: attempted colonoscopy Consults: Consultations 01/31/19 15:26 Consult to Physician [CONS] Routine - Patient Instructions Diet: Diabetic Diet Activity: As Tolerated Notify Provider of: Fever, Increased Pain, Swelling and Redness, Drainage, Nausea and/or Vomiting Other/Special Instructions: blood in stool - Discharge Plan *PRESCRIPTION DRUG MONITORING PROGRAM REVIEWED*: Not Applicable *COPY OF PRESCRIPTION DRUG MONITORING REPORT IN PATIENT MAGGIE: Not Applicable Prescriptions/Med Rec: Ferrous Sulfate 325 mg PO DAILY 30 Days #30 tablet Pantoprazole [ProTONIX] 40 mg PO BID 30 Days #60 tab.cr Pantoprazole [ProTONIX] 40 mg PO BID 30 Days #60 tab.cr Home Medications: Home Meds Levothyroxine 75 mcg PO ACBREAKFAST 01/31/19 [History] Losartan [Cozaar] 100 mg PO DAILY 01/31/19 [History] Simvastatin 20 mg PO BEDTIME 01/31/19 [History] cycloSPORINE [Restasis] 1 drop EYEBOTH BID 01/31/19 [History] hydroCHLOROthiazide [Hydrochlorothiazide] 25 mg PO DAILY 01/31/19 [History] metFORMIN HCl [Metformin HCl ER] 500 mg PO WITHDINNER 01/31/19 [History] Ferrous Sulfate 325 mg PO DAILY 30 Days #30 tablet 02/02/19 [Rx] Pantoprazole [ProTONIX] 40 mg PO BID 30 Days #60 tab.cr 02/02/19 [Rx] Pantoprazole [ProTONIX] 40 mg PO BID 30 Days #60 tab.cr 02/02/19 [Rx] Patient Handouts: Colonoscopy, Adult, Gastrointestinal Bleeding, [id number], Pantoprazole tablets Referrals: Patricio Shepherd MD [Primary Care Provider] - 02/10/19 10:00 am Maverick Felix MD [Physician] - 02/16/19 9:15 am (2 weeks) - Discharge Summary/Plan Comment DC Time >30 min.: No - Patient Data Vitals - Most Recent: Last Vital Signs Temp 98.3 F 02/02/19 07:48 Pulse 70 02/02/19 12:00 Resp 13 02/02/19 12:00 BP 156/59 H 02/02/19 13:56 Pulse Ox 93 L 02/02/19 12:00 Weight - Most Recent: 57.062 kg I&O - Last 24 hours: Intake & Output 02/02/19 02/02/19 02/02/19 06:59 14:59 22:59 Intake Total 1937 450 Output Total 1200 Balance 737 450 Lab Results - Last 24 hrs: Laboratory Results - last 24 hr 02/01/19 02/02/19 02/02/19 Range/Units 16:09 05:39 05:39 WBC 10.81 (4.0-11.0) K/uL RBC 4.65 (4.30-5.90) M/uL Hgb 10.4 L 10.4 L (12.0-16.0) g/dL Hct 32.8 L 33.7 L (36.0-46.0) % MCV 72.5 L (80.0-98.0) fL MCH 22.4 L (27.0-32.0) pg MCHC 30.9 L (31.0-37.0) g/dL RDW Std Deviation 65.2 H (28.0-62.0) fl RDW Coeff of Cassie 25 H (11.0-15.0) % Plt Count 367 (150-400) K/uL MPV 9.30 (7.40-12.00) fL Neut % (Auto) 65.2 (48.0-80.0) % Lymph % (Auto) 17.4 (16.0-40.0) % [place] % (Auto) 13.9 (0.0-15.0) % Eos % (Auto) 3.2 (0.0-7.0) % Baso % (Auto) 0.3 (0.0-1.5) % Neut # (Auto) 7.1 H (1.4-5.7) K/uL Lymph # (Auto) 1.9 (0.6-2.4) K/uL [place] # (Auto) 1.5 H (0.0-0.8) K/uL Eos # (Auto) 0.4 (0.0-0.7) K/uL Baso # (Auto) 0.0 (0.0-0.1) K/uL Nucleated RBC % 0.0 /100WBC Nucleated RBCs # 0 K/uL Sodium 140 (136-145) mmol/L Potassium 3.1 L (3.5-5.1) mmol/L Chloride 106 (98-107) mmol/L Carbon Dioxide 24.2 (21.0-32.0) mmol/L BUN 12 (7.0-18.0) mg/dL Creatinine 0.8 (0.6-1.0) mg/dL Est Cr Clr Drug Dosing 34.91 mL/min Estimated GFR (MDRD) > 60.0 ml/min Glucose 79 (74-106) mg/dL Calcium 9.3 (8.5-10.1) mg/dL [facility] Results - Last 24 hrs: Microbiology 01/31/19 07:40 Stool Occult Blood ([facility]ILL) - Final Stool / Feces NEGATIVE OCCULT BLOOD REFERENCE RANGE: NEGATIVE Med Orders - Current: Current Medications Acetaminophen (Tylenol) 650 mg PO Q6H PRN PRN Reason: Pain Last Admin: 02/01/19 21:16 Dose: 650 mg Furosemide (Lasix) 20 mg IVPUSH ONETIME PRN PRN Reason: Other Hydrochlorothiazide (Hydrochlorothiazide) 25 mg PO DAILY [facility] Last Admin: 02/02/19 13:55 Dose: 25 mg Pantoprazole Sodium 40 mg/ (Sodium Chloride) 10 mls @ 300 mls/hr IV Q12HR [facility] Last Admin: 02/02/19 09:35 Dose: 300 mls/hr Lactated Ringer's (Ringers, Lactated) 1,000 mls @ 50 mls/hr IV ASDIRECTED [facility] Last Admin: 02/02/19 02:31 Dose: 50 mls/hr Levothyroxine Sodium (Levothyroxine) 75 mcg PO ACBREAKFAST [facility] Last Admin: 02/02/19 07:50 Dose: Not Given Losartan Potassium (Cozaar) 100 mg PO DAILY [facility] Last Admin: 02/02/19 13:56 Dose: 100 mg Ondansetron HCl (Zofran) 4 mg IVPUSH Q4H PRN PRN Reason: Nausea Cyclosporine 1 Drop 1 each EYEBOTH BID [facility] Last Admin: 02/02/19 13:57 Dose: 1 each Simvastatin (Zocor) 20 mg PO BEDTIME [facility] Last Admin: 02/01/19 21:16 Dose: 20 mg Sodium Chloride (Saline Flush) 2.5 ml FLUSH ASDIRECTED PRN PRN Reason: Keep Vein Open Discontinued Medications Bisacodyl (Dulcolax) 20 mg PO ONETIME ONE Stop: 02/01/19 14:01 Last Admin: 02/01/19 14:15 Dose: 20 mg Glycopyrrolate (Robinul) Confirm Administered Dose 0.2 mg .ROUTE .STK-MED ONE Stop: 02/02/19 11:20 Pantoprazole Sodium 80 mg/ (Sodium Chloride) 20 mls @ 600 mls/hr IV ONETIME ONE Stop: 01/31/19 12:33 Last Admin: 01/31/19 14:16 Dose: 600 mls/hr Lactated Ringer's (Ringers, Lactated) 1,000 mls @ 50 mls/hr IV ASDIRECTED [facility] Last Admin: 02/01/19 06:23 Dose: 50 mls/hr Iron Sucrose 500 mg/ Sodium (Chloride) 275 mls @ 62.5 mls/hr IV ONETIME ONE Stop: 02/01/19 15:31 Last Admin: 02/01/19 12:08 Dose: 62.5 mls/hr Lactated Ringer's (Ringers, Lactated) 1,000 mls @ 50 mls/hr IV ASDIRECTED [facility] Potassium Chloride 40 meq/ (Premix) 100 mls @ 25 mls/hr IV ONETIME ONE Stop: 02/02/19 11:48 Last Admin: 02/02/19 08:56 Dose: 25 mls/hr Lidocaine HCl (Xylocaine-Mpf 1%) Confirm Administered Dose 5 ml .ROUTE .STK-MED ONE Stop: 02/01/19 09:56 Pantoprazole Sodium (Protonix Iv) 40 mg IV Q12HR [facility] Pantoprazole Sodium (Protonix Iv) Confirm Administered Dose 40 mg .ROUTE .STK -MED ONE Stop: 01/31/19 14:11 Last Admin: 01/31/19 14:35 Dose: Not Given Pantoprazole Sodium (Protonix Iv) Confirm Administered Dose 40 mg .ROUTE .STK -MED ONE Stop: 01/31/19 14:15 Last Admin: 01/31/19 14:35 Dose: Not Given Polyethylene Glycol (Miralax) 119 gm PO Q4H [facility] Stop: 02/01/19 20:01 Last Admin: 02/01/19 19:45 Dose: 119 gm Propofol (Diprivan 20 Ml) Confirm Administered Dose 200 mg .ROUTE .STK-MED ONE Stop: 02/01/19 09:55 Propofol (Diprivan 20 Ml) Confirm Administered Dose 400 mg .ROUTE .STK-MED ONE Stop: 02/02/19 10:45 <Alexys Montalvo - Last Filed: 02/03/19 18:47> Discharge Summary - Referral to Home Health Primary Care Physician: Patricio Shepherd MD - Patient Summary/Data Consults: Consultations 01/31/19 15:26 Consult to Physician [CONS] Routine - Patient Data Vitals - Most Recent: Last Vital Signs Temp 37.1 C 02/02/19 16:00 Pulse 58 L 02/02/19 16:00 Resp 18 02/02/19 16:00 BP 140/76 02/02/19 16:00 Pulse Ox 92 L 02/02/19 16:00 Lab Results - Last 24 hrs: Laboratory Results - last 24 hr 01/31/19 Range/Units 12:47 Blood Type O POSITIVE Antibody Screen NEGATIVE Crossmatch See Detail Med Orders - Current: Current Medications Discontinued Medications Acetaminophen (Tylenol) 650 mg PO Q6H PRN PRN Reason: Pain Last Admin: 02/01/19 21:16 Dose: 650 mg Bisacodyl (Dulcolax) 20 mg PO ONETIME ONE Stop: 02/01/19 14:01 Last Admin: 02/01/19 14:15 Dose: 20 mg Furosemide (Lasix) 20 mg IVPUSH ONETIME PRN PRN Reason: Other Glycopyrrolate (Robinul) Confirm Administered Dose 0.2 mg .ROUTE .STK-MED ONE Stop: 02/02/19 11:20 Hydrochlorothiazide (Hydrochlorothiazide) 25 mg PO DAILY [facility] Last Admin: 02/02/19 13:55 Dose: 25 mg Pantoprazole Sodium 80 mg/ (Sodium Chloride) 20 mls @ 600 mls/hr IV ONETIME ONE Stop: 01/31/19 12:33 Last Admin: 01/31/19 14:16 Dose: 600 mls/hr Pantoprazole Sodium 40 mg/ (Sodium Chloride) 10 mls @ 300 mls/hr IV Q12HR [facility] Last Admin: 02/02/19 09:35 Dose: 300 mls/hr Lactated Ringer's (Ringers, Lactated) 1,000 mls @ 50 mls/hr IV ASDIRECTED [facility] Last Admin: 02/01/19 06:23 Dose: 50 mls/hr Iron Sucrose 500 mg/ Sodium (Chloride) 275 mls @ 62.5 mls/hr IV ONETIME ONE Stop: 02/01/19 15:31 Last Admin: 02/01/19 12:08 Dose: 62.5 mls/hr Lactated Ringer's (Ringers, Lactated) 1,000 mls @ 50 mls/hr IV ASDIRECTED [facility] Lactated Ringer's (Ringers, Lactated) 1,000 mls @ 50 mls/hr IV ASDIRECTED [facility] Last Admin: 02/02/19 02:31 Dose: 50 mls/hr Potassium Chloride 40 meq/ (Premix) 100 mls @ 25 mls/hr IV ONETIME ONE Stop: 02/02/19 11:48 Last Admin: 02/02/19 08:56 Dose: 25 mls/hr Levothyroxine Sodium (Levothyroxine) 75 mcg PO ACBREAKFAST [facility] Last Admin: 02/02/19 07:50 Dose: Not Given Lidocaine HCl (Xylocaine-Mpf 1%) Confirm Administered Dose 5 ml .ROUTE .STK-MED ONE Stop: 02/01/19 09:56 Losartan Potassium (Cozaar) 100 mg PO DAILY [facility] Last Admin: 02/02/19 13:56 Dose: 100 mg Ondansetron HCl (Zofran) 4 mg IVPUSH Q4H PRN PRN Reason: Nausea Pantoprazole Sodium (Protonix Iv) 40 mg IV Q12HR [facility] Pantoprazole Sodium (Protonix Iv) Confirm Administered Dose 40 mg .ROUTE .STK -MED ONE Stop: 01/31/19 14:11 Last Admin: 01/31/19 14:35 Dose: Not Given Pantoprazole Sodium (Protonix Iv) Confirm Administered Dose 40 mg .ROUTE .STK -MED ONE Stop: 01/31/19 14:15 Last Admin: 01/31/19 14:35 Dose: Not Given Cyclosporine 1 Drop 1 each EYEBOTH BID [facility] Last Admin: 02/02/19 13:57 Dose: 1 each Polyethylene Glycol (Miralax) 119 gm PO Q4H [facility] Stop: 02/01/19 20:01 Last Admin: 02/01/19 19:45 Dose: 119 gm Propofol (Diprivan 20 Ml) Confirm Administered Dose 200 mg .ROUTE .STK-MED ONE Stop: 02/01/19 09:55 Propofol (Diprivan 20 Ml) Confirm Administered Dose 400 mg .ROUTE .STK-MED ONE Stop: 02/02/19 10:45 Simvastatin (Zocor) 20 mg PO BEDTIME [facility] Last Admin: 02/01/19 21:16 Dose: 20 mg Sodium Chloride (Saline Flush) 2.5 ml FLUSH ASDIRECTED PRN PRN Reason: Keep Vein Open - Free Text/Narrative Note: I have seen and examined the patient with the resident. I have discussed findings and treatment plan with the resident. I agree with the assessment and plan outlined in the following note.
[2019-02-02 16:07] VITALS: BP 140/76; PULSE 58
--- NOTE | 2019-02-02 16:14 | OR ---
SURGEON: Maverick Felix MD DATE OF PROCEDURE: 02/02/2019 PREOPERATIVE DIAGNOSIS: Anemia. POSTOPERATIVE DIAGNOSIS: Anemia. PROCEDURE PERFORMED: Attempted colonoscopy. PRIMARY SURGEON: Maverick Felix MD. COMPLICATIONS: None. FINDINGS: The scope was advanced easily to 40 cm and cannot advance. Put the patient flat on her back and still cannot advance and colonoscopy aborted. During the limited study, there is no disease observed. No diverticulosis or bleeding or blood, and in fact, the stool was yellow. PROCEDURE IN DETAIL: The patient was taken to endoscopy room and placed in a supine position. The patient was then repositioned into a left decub position, left side down, right side up. Time-out was being called. Patient identified, procedure identified. Procedure then started. The patient was under mild general sedation. First inspection and also followed with digital examination and only find yellow liquid stool. No mass. A well-lubricated Olympus colonoscope was gently inserted through the rectum and advanced without difficulty all the way to probably about 40 cm and failed to advance despite numerous attempts. Also, put the patient on the back and still failed to advanced and at that time colonoscopy aborted. During the limited study, there is no blood, blood clot, or bleeding encounter. There is no diverticulosis, polyp, or disease observed. In fact the stool coming out was yellow. The patient was transferred back to recovery room in a hemodynamically stable condition. JEANNE / DANIEL /[id number]
== END 2019-02-02 17:00 | disposition home or self-care (01) | DRG 812 ==
LOC: MW.CHFP 08:27 → MW.ICU 12:05 → MW.MS 02-01 18:05
PROVIDERS: ADMIT Student in an Organized Health Care Education/Training Program; ATTEND Student in an Organized Health Care Education/Training Program
PROC: 30233N1 Transfusion of Nonautologous Red Blood Cells into Peripheral Vein, Percutaneous Approach (ICD-10-PCS; principal; 2019-01-31)
PROC: 0DB78ZX Excision of Stomach, Pylorus, Via Natural or Artificial Opening Endoscopic, Diagnostic (ICD-10-PCS; 2019-02-01)
PROC: 0DJD8ZZ Inspection of Lower Intestinal Tract, Via Natural or Artificial Opening Endoscopic (ICD-10-PCS; 2019-02-02)
DX: D50.9 Iron deficiency anemia, unspecified (principal); K29.70 Gastritis, unspecified, without bleeding; E03.9 Hypothyroidism, unspecified; I10 Essential (primary) hypertension; E11.9 Type 2 diabetes mellitus without complications; E78.00 Pure hypercholesterolemia, unspecified; M79.601 Pain in right arm; M79.602 Pain in left arm; G89.29 Other chronic pain; E87.6 Hypokalemia; Z98.49 Cataract extraction status, unspecified eye; Z79.890 Hormone replacement therapy; Z79.899 Other long term (current) drug therapy; Z79.84 Long term (current) use of oral hypoglycemic drugs
CPT/HCPCS: 00731; 00811; 36415; 36430; 74018; 74018-26; 80048; 82247; 82272; 82607; 82728; 82746; 83036; 83550; 84075; 84450; 84460; 85014; 85018; 85025; 85027; 85045; 85610; 85730; 88104; A9270-GY; C9113; J1756; J2001; J2704; J3480; J3490; J7050; J7120; P9016